=== PATIENT | female | born 1975 | race Caucasian/White ===

== ENCOUNTER 2020-04-10 07:23 | Outpatient (CLI) | payer BC, SELFPAY ==
[2020-04-10 17:31] LABS: SARS-CoV-2 RNA PCR Negative
== END 2020-04-10 07:24 | disposition home or self-care (01) ==
LOC: ANHCOVIDDT 07:23
PROVIDERS: PCP Family Medicine; Visit Provider Obstetrics & Gynecology
DX: Z01.812 Encounter for preprocedural laboratory examination (principal); Z20.828 Contact with and (suspected) exposure to other viral communicable diseases
CPT/HCPCS: 87635; C9803; U0003

== ENCOUNTER 2020-04-10 08:10 | Outpatient (CLI) | payer BC, SELFPAY ==
--- NOTE | 2020-04-10 08:44 | ECG_ITS ---
Measurements Intervals [place] Rate: 69 P: -23 NH: 161 QRS: 56 QRSD: 90 T: 48 QT: 417 QTc: 449 Interpretive Statements SINUS OR ECTOPIC ATRIAL RHYTHM BORDERLINE ECG Electronically Signed On 04-10-2020 9:04:19 CDT by Lauro Graves D.O.
[2020-04-10 08:50] LABS: Alanine Aminotransferase 25 U/L (4-35); Albumin Level 4.1 g/dL (3.5-5.1); Alkaline Phosphatase 93 U/L (38-126); Aspartate Amino Transferase 26 U/L (14-36); Bilirubin,Total 0.6 mg/dL (0.2-1.3); Blood Urea Nitrogen 19 mg/dL (7-17); Calcium 8.2 mg/dL (8.4-10.2); Carbon Dioxide 23 mmol/L (22-30); Chloride 104 mmol/L (98-107); Estimated Glomerular Filt Rate > 60; Glucose 164 mg/dL (65-105); Potassium 3.8 mmol/L (3.4-5.0); Sodium 134 mmol/L (137-145)
== END 2020-04-10 08:11 | disposition home or self-care (01) ==
PROVIDERS: PCP Family Medicine; Referring Provider Anesthesiology; Visit Provider Obstetrics & Gynecology
DX: Z01.818 Encounter for other preprocedural examination (principal); N92.0 Excessive and frequent menstruation with regular cycle; R94.31 Abnormal electrocardiogram [ECG] [EKG]
CPT/HCPCS: 36415; 80053; 86850; 86900; 86901; 93005

== ENCOUNTER 2020-04-11 01:11 | Day surgery (SDC) | payer BC, SELFPAY ==
[2020-04-03 17:35] VITALS: BMI 33.8
[2020-04-11] VITALS (17 sets, daily range): BP systolic 85–128; BP diastolic 47–79; PULSE 57–91; RESP 12–22; TEMP 35.9–37.2; O2SAT 91–100
[2020-04-11] MEDS: LACTATED RINGERS 1,000 ML 30 ML IV CONT ×2 (06:25→10:10)
[2020-04-11] MEDS: IBUPROFEN IV 800 MG/200 ML 800 MG/200 ML BAG 400 MG IVPB (06:50)
--- NOTE | 2020-04-11 06:53 | WPDANESEPPF ---
Anes - Initial Pre Proc Eval Procedure: Operation Date: 04/11/20 07:30 Proposed Procedures p Total Laparoscopic Assisted Hysterectomy with Bilateral Salpingo-Oophorectomy - Tk Carbajal MD Date/Time: 04/11/20 06:53 Surgeon: Tk Carbajal MD Pre Op Diagnosis: severe cervical dysplasia, menorrhaghia, dysmenorr Patient Data Age: 44 Gender: F Height: 5 ft 3.5 in Weight: 89 kg Allergies Allergy/AdvReac Type Severity Reaction Status Date / Time No Known Allergies Allergy Verified 04/11/20 06:00 Home Medications Medication Instructions Recorded Confirmed Type metoprolol succinate 50 mg 50 mg PO BID #60 tablet 11/28/19 04/03/20 Rx tablet,extended release 24 hr amlodipine 10 mg tablet 10 mg PO DAILY #90 tablet 01/11/20 04/03/20 Rx losartan 100 mg tablet 100 mg PO DAILY #90 tablet 02/08/20 04/03/20 Rx chlorthalidone 25 mg tablet 25 mg PO DAILY #30 tablet 03/12/20 04/03/20 Rx Patient hx anesthesia problems: none Family hx anesthesia problems: none PMFSH Past Medical History Medical History (Updated 12/26/19 @ 21:15 by Roselia Rosen MD) Anemia BP (high blood pressure) Mood swings Social History Social History (Updated 12/26/19 @ 15:32 by Yahaira Celestin) Social History: Smoking packs per day: 1 Smoking cigarettes per day: 20.0 Smoking status: Former smoker Tobacco type: cigarettes Second hand tobacco smoke exposure: No Smoking end date: 05/16/19 Alcohol intake: never Substance use: never Substance use type: does not use Gender identity (if verbalized by the patient): Female Anes - Eval Final PreProcedure Day of Procedure 04/11/20 06:53 Patient weight: overweight Heart: regular rate and rhythm Lungs: clear to auscultation Airway: Mallampati scale class II Neurological: alert and oriented Last oral intake: >/= 8 hours ASA classification: II Emergent: no Anesthetic plan: proceed Anesthesia type and monitoring: general ETT and standard monitoring Informed Consent: The patient's anesthetic plan and its attendant risks and benefits were discussed with the patient/family/POA. Questions were solicited and answers provided to the satisfaction of the patient/family/POA.
--- NOTE | 2020-04-11 07:18 | WPDHPUPDATE1 ---
History and Physical Update Update Date/Time: 04/11/20 07:18 History and Physical has been reviewed, including an updated exam of the patient. There are NO changes in the patient's condition. Risks, benefits, and alternatives have been discussed and questions answered. Patient agrees to proceed with procedure.
[2020-04-11] MEDS: ceFAZolin 2 GM/D5W 50 ML 2 GM/50 ML BAG IVPB (07:26)
--- NOTE | 2020-04-11 09:57 | SUR.OPER ---
EBL:50cc Urine:250cc
--- NOTE | 2020-04-11 09:59 | PM.PROC ---
Procedure Note - Detailed Date of procedure: 04/11/20 Pre-op diagnosis: severe cervical dysplasia, menorrhaghia, dysmenorr Post-op diagnosis: same Procedure performed: Incidental cystotomy Description of procedure: Total laparoscopic hysterectomy and bilateral salpingo oophorectomy, repair of incidental cystotomy Anesthesia: GETA Surgeon: Tk Carbajal MD Estimated blood loss (mL): 50 Drains: No Packing: No Pathology: yes Complications: Other complications (Incidental cystotomy -1 cm) Condition: stable Disposition: PACU Findings: Mildly enlarged uterus
--- NOTE | 2020-04-11 10:07 | PM.PROC ---
Procedure Note - Detailed Date of procedure: 04/11/20 Pre-op diagnosis: severe cervical dysplasia, menorrhaghia, dysmenorr Post-op diagnosis: same Procedure performed: Total laparoscopic hysterectomy bilateral salpingo-oophorectomy, repair of incidental cystotomy Description of procedure: The patient was taken to the operating room. She was prepped and draped in the dorsal lithotomy position. A speculum was placed in the vagina. The cervix was grasped with a tenaculum. Stay sutures were placed at 3 and 9:00 a.m. of 0 Vicryl. The stay sutures were brought through the Marimar up. The ANGELA manipulator was placed in the vagina with a fixed Marimar cup. The cup was then pushed up around the cervix. The sutures were tied to the handle of the ANGELA manipulator. A 5 mm incision was made on the abdominal skin of the left upper quadrant using a scalpel. A 5 mm trocar was inserted into the intra-abdominal cavity under direct visualization the scope. Pneumoperitoneum was achieved. An 11 mm incision was made in the left lower quadrant of the abdomen with a scalpel. A 11 mm trocar was inserted into the intra-abdominal cavity under direct visualization the scope. A 5 mm periumbilical incision was made. A 5 mm scope was placed into the intra-abdominal cavity under direct visualization of the scope. The ureters were identified. The ureters were observed to be away from the infundibulopelvic ligaments. These infundibulopelvic ligaments were isolated, cauterized, and transected with LigaSure cautery. This was done in a bilateral fashion. The para ovarian tissue along the pelvic sidewall was cauterized and transected in a bilateral fashion using the ligature cautery. The round ligaments were cauterized and transected bilaterally with LigaSure cautery. The broad ligaments were cauterized and transected along the lateral aspects of the uterus down the level of the uterine arteries. A bladder flap was created using sharp and blunt dissection. The ureters were dissected out bilaterally down to the level of the uterine arteries. They could be visualized from the pelvic brim down the uterine arteries. Staying very close to the cervix the parametrium was cauterized transected in a stepwise fashion down to the level of the Marimar cup. The Bladder flap was moved distally over the Marimar cup using sharp and blunt dissection. During this dissection the small 1 cm defect was created in the dome of the bladder. The cup was visualized and a complete 360 degree papillary around the cervix. An incision was made with unipolar cautery down under the Marimar cup creating a colpotomy incision all the way around the cervix. The uterus tubes and ovaries were taken out through the vagina. A pneumo occluder was placed in the vagina. The vagina was closed with 0 V lock suture in a running fashion. Using a 2 0 Vicryl in a [id number] suture close the defect in the bladder wall. An imbricating layer of 3 0 Vicryl was placed. This closed the defect thoroughly. 200 cc of water was placed in the bladder. It was found to be watertight. The ureters were identified again and found to be intact elevated and the uterine arteries. The pelvis was irrigated with a copious amount of antibiotic irrigation. The pneumoperitoneum was reduced. The trocars were removed. The skin was closed subcuticular 4 Monocryl covered with Dermabond. The pneumo occluder was removed from the vagina. The vagina was irrigated with Betadine. The patient tolerated the procedure well. She was taken to the recovery room in stable condition. Sponge lap and needle counts were correct x2. Anesthesia: GETA Surgeon: Tk Carbajal MD Estimated blood loss (mL): 200 Drains: No Packing: No Pathology: yes Complications: Other complications (1 cm cystotomy in the dome of the bladder) Condition: stable Disposition: PACU Findings: Grossly normal-appearing tubes and ovaries. The uterus was enlarged. A 1cm incidental cystotomy that was aleta
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
[2020-04-11] MEDS: LACTATED RINGERS 1,000 ML 125 ML IV CONT (12:11)
[2020-04-11] MEDS: KETOROLAC 30 MG/ML VIAL (*BKC) IV PUSH (13:13)
[2020-04-11] MEDS: IBUPROFEN 600 MG TABLET PO (22:53)
[2020-04-12 04:34] VITALS: BP 124/70; PULSE 81; RESP 17; TEMP 37
--- NOTE | 2020-04-12 07:44 | PM.GYNPNOP ---
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: Procedures Operation Date: 04/11/20 07:30 Actual Procedures Side Surgeon p Total Laparoscopic Assisted Hysterectomy with Bilateral Salpingo-Oophorectomy Bilateral Tk Carbajal MD POD#1 TLH/BSO with cystotomy - to d/c with catheter Postoperative day: 1 Postoperative status: doing well and other (Tollerating Regular Diet) Postoperative plan: routine post-op care and discharge Time Spent With Patient Time: Total time spent is greater than 50% in coordination of care (as documented) at patient's floor/unit and/or counseling patient: Time with patient: 15 - 25 minutes 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 Post-Op Subjective Date/time seen: 04/12/20 07:44 Subjective: patient reports feeling better, pain is well controlled and patient is tolerating oral intake Exam Const: General: cooperative, healthy appearing, comfortable and no acute distress Resp: Auscultation: no crackles, no rales, no rhonchi and no wheezes Cardio: Rhythm: regular rhythm Heart sounds: no click and no murmurs GI: Inspection: non-distended Auscultation: normal bowel sounds Other: Incisions - CDI Extrem: General: normal to inspection, no pedal edema and no calf tenderness 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 - PN: Obj Data Vital Signs Vital Signs: Vital Signs - 24 hr 04/11/20 10:09 04/11/20 10:20 04/11/20 10:35 Temperature 96.7 F L Pulse Rate 66 65 69 Respiratory Rate 16 15 22 H Blood Pressure 91/62 L 96/56 L 96/50 L Pulse Oximetry 94 92 95 04/11/20 10:50 04/11/20 11:05 04/11/20 11:20 Temperature Pulse Rate 70 69 66 Respiratory Rate 16 16 16 Blood Pressure 92/54 L 102/58 L 118/74 Pulse Oximetry 91 91 93 04/11/20 11:35 04/11/20 12:00 04/11/20 12:15 Temperature 97.0 F L 98.9 F Pulse Rate 67 62 57 L Respiratory Rate 12 18 18 Blood Pressure 110/70 93/71 L 111/73 Pulse Oximetry 94 96 96 04/11/20 12:30 04/11/20 13:00 04/11/20 14:00 Temperature Pulse Rate 63 71 67 Respiratory Rate 18 18 18 Blood Pressure 116/69 107/47 L 85/67 L Pulse Oximetry 96 95 95 04/11/20 15:00 04/11/20 16:00 04/11/20 19:35 Temperature 98 F 98.2 F Pulse Rate 76 86 87 Respiratory Rate 18 18 17 Blood Pressure 109/67 123/74 128/79 Pulse Oximetry 96 96 04/11/20 23:30 04/12/20 04:34 Temperature 98.6 F 98.6 F Pulse Rate 91 81 Respiratory Rate 17 17 Blood Pressure 117/65 124/70 Pulse Oximetry Intake/Output Intake/Output: Intake & Output 04/09/20 04/10/20 04/11/20 04/12/20 23:59 23:59 23:59 23:59 Intake Total 1650 2200 Output Total 500 2600 Balance 1150 -400 Meds/Results Medications: Active Medications Generic Name Dose Route Start Last Admin Trade Name Freq PRN Reason Stop Dose Admin Hydrocodone Bitart/Acetaminophen 1 tab 04/11/20 11:40 04/11/20 22:53 [place] 5-325 Mg PO 1 tab Q3H PRN Administration Pain Rated 5 or Less Hydrocodone Bitart/Acetaminophen 1 tab 04/11/20 11:40 [place] 10-325 Mg PO Q3H PRN Pain Rated 6 or Greater Amlodipine Besylate 10 mg 04/12/20 09:00 Norvasc PO DAILY [facility] Chlorthalidone 25 mg 04/12/20 09:00 [place] PO DAILY AZRA Ibuprofen 600 mg 04/11/20 11:40 04/11/20 22:53 Motrin PO 600 mg Q6H PRN Administration Cramping Ketorolac Tromethamine 30 mg 04/11/20 11:40 04/11/20 13:13 Toradol Inj IV PUSH 04/16/20 11:41 30 mg Q6H PRN Administration Pain Rated 4-6 Losartan Potassium 100 mg 04/12/20 09:00 Cozaar PO DAILY [facility] Metoprolol Succinate 50 mg 04/11/20 21:00 04/11/20 23:17 Toprol Xl PO Not Given Q12HR AZRA Naloxone HCl 0.1 mg 04/11/20 11:40 Narcan IV PUSH Q2M PRN Respiratory rate less than 10
[2020-04-12 08:20] VITALS: BP 130/75; PULSE 77; RESP 16; TEMP 37.2; O2SAT 96
[2020-04-12] MEDS: IBUPROFEN 600 MG TABLET PO (08:21)
[2020-04-12 09:35] VITALS: BP 121/71; PULSE 87
--- NOTE | 2020-04-12 12:15 | PC.NURSE ---
1207-Patient discharged home with mckeon leg bag. Instructions given for use at home. Patient verbalized understanding.
== END 2020-04-12 12:07 | disposition home or self-care (01) ==
LOC: ANHSURGERY 05:48 → ANHOB2 11:45
PROVIDERS: PCP Family Medicine; Visit Provider Obstetrics & Gynecology
PROC: 0UT9FZZ Resection of Uterus, Via Natural or Artificial Opening With Percutaneous Endoscopic Assistance (ICD-10-PCS; CPT 58571; principal; 2020-04-11 07:30)
DX: N87.1 Moderate cervical dysplasia (principal); N92.0 Excessive and frequent menstruation with regular cycle; N94.6 Dysmenorrhea, unspecified; N80.0 Endometriosis of uterus; N83.02 Follicular cyst of left ovary; N83.01 Follicular cyst of right ovary; N83.8 Other noninflammatory disorders of ovary, fallopian tube and broad ligament; I10 Essential (primary) hypertension; Z87.891 Personal history of nicotine dependence
CPT/HCPCS: 58571; 88307; 99199; A9270; J0690; J1170; J1741; J1885; J2250; J2405; J2704; J2710; J3010; J7030; J7120

== ENCOUNTER 2020-04-17 08:52 | Outpatient (CLI) | payer BC, SELFPAY ==
--- NOTE | ~2020-04-17 | XR_ITS ---
EXAMINATION: XR cystogram DATE: 04/17/2020 09:35 INDICATION: Bladder perforation. TECHNIQUE: Water-soluble contrast was gravity-infused through the patient's Zhao catheter. Multiple fluoroscopic images were obtained. Fluoroscopy exposure time was 0.2 minutes. The total number of bigg ges was 9. COMPARISON: None. FINDINGS: There is no extraluminal leakage of contrast. No ureteral reflux. IMPRESSION: 1. Normal cystogram. Reviewed, dictated and finalized at location A. IMPRESSION: 1. Normal cystogram.
== END 2020-04-17 08:53 | disposition home or self-care (01) ==
LOC: ANHIMG 08:55
PROVIDERS: PCP Family Medicine; Visit Provider Obstetrics & Gynecology
DX: R39.89 Other symptoms and signs involving the genitourinary system (principal)
CPT/HCPCS: 51600; 74430; Q9967